=== PATIENT | female | born 1985 | race Caucasian/White ===

== ENCOUNTER 2017-01-04 11:47 | Emergency (ER) | payer OTHER ==
[2017-01-04 12:56] LABS: HEMOGLOBIN 14.9 gm/dl (12.3-15.3); RED BLOOD COUNT 4.81 M/UL (4.00-5.10); WHITE BLOOD COUNT 6.7 K/UL (4.5-11.0)
[2017-01-04 13:22] LABS: BUN/CREATININE RATIO 16 (0-10)
== END 2017-01-04 14:25 | disposition home or self-care (01) ==
LOC: ER1 11:47
PROVIDERS: Physician Assistant
DX: R07.9 Chest pain, unspecified (principal); Z87.891 Personal history of nicotine dependence; J45.909 Unspecified asthma, uncomplicated; Z79.899 Other long term (current) drug therapy
CPT/HCPCS: 36415; 71020; 80053; 82550; 82553; 83874; 84484; 84703; 85025; 85379; 93005; 99285

== ENCOUNTER 2022-04-16 07:08 | Emergency (ER) | payer OTHER ==
[~2022-04-16 07:08] MED LIST: ASPIRIN 325MG325 MG PO; IBUPROFEN600 MG PO; SINGULAIR10 MG PO; ZANTAC150 MG PO; ZYRTEC10 MG PO
[2022-04-16 07:48] LABS: HEMOGLOBIN 14.5 gm/dl (12.3-15.3); RED BLOOD COUNT 4.79 M/UL (4.00-5.10); WHITE BLOOD COUNT 8.3 K/UL (4.5-11.0)
[2022-04-16 08:13] LABS: BUN/CREATININE RATIO 21 (0-10)
[2022-04-16] MEDS ORDERED: ZOFRAN 4 MG TAB4 MG PO (09:21)
[2022-04-16] MEDS ORDERED: HYDROCODON-ACE1 EAC4 PO (09:21)
== END 2022-04-16 09:50 | disposition home or self-care (01) ==
LOC: ER1 07:08
PROVIDERS: Emergency Medicine
DX: N13.2 Hydronephrosis with renal and ureteral calculous obstruction (principal); R00.0 Tachycardia, unspecified; F17.200 Nicotine dependence, unspecified, uncomplicated
CPT/HCPCS: 80053; 81001; 83605; 84703; 85025; 87040; 96374; 96375; 99284; J0696; J1885; J2270; J2405